=== PATIENT | male | born 1945 | race Caucasian/White ===

== ENCOUNTER → 2017-12-26 | Outpatient (CLI) | payer MEDICARE, OTHER ==
[~2017-12-26] MED LIST: ACET-1935 PO; AMLO-552 PO; ASPI81TA94 PO; CEL100 PO; CEP500 PO; CEPH-13 PO; DIA5 PO; DOC100 PO; DOXA8TAB11 PO; DOXA8TAB62 PO; DYA PO; HYDR-4309 PO; KET10 PO; LIDO700A29 TD; LOR5 PO; MELO-149 PO; OMEP-218 PO; PER PO; PIRO-91 PO; TAM4 PO; TAMS0.4C70 PO; VALA100062 PO
--- NOTE | 2017-12-26 12:43 | RADIOLOGY IMAGING REPORT ---
FACILITY: [facility] PATIENT NAME: Aron Lucas : 1945 MR: [id number] V: [id number] EXAM DATE: ORDERING PHYSICIAN: RAOUL ASHBY TECHNOLOGIST: Location: [facility] [place] Patient: Aron Lucas : 1945 Visit/Account:[id number] Date of Sevice: 12/26/2017 CHEST PA AND LAT Indication: Cough Comparison: Chest x-ray 08/30/2016 Findings: Lungs: Clear. Mediastinum/pulmonary vasculature: Heart size and pulmonary vasculature are normal. Bones/soft tissues: Normal. IMPRESSION: Clear lungs. Report Dictated By: Jackson Choudhary at 12/26/2017 12:37 PM Report E-Signed By: Jackson Choudhary at 12/26/2017 12:38 PM WSN:[email or web address]
== END ==
LOC: RAD 11:47
PROVIDERS: ATTEND Nurse Practitioner Primary Care
DX: R05 Cough (principal)
CPT/HCPCS: 71046

== ENCOUNTER → 2018-01-31 | Outpatient (CLI) | payer MEDICARE, OTHER ==
[~2018-01-31] MED LIST changes: +AMLO-99 PO; +BENA40TA52 PO; +DOXA4TAB58 PO
[2018-01-31 05:56] LABS: PLATELET COUNT, AUTOMATED 215 K/uL (150-450)
[2018-01-31 06:10] LABS: LDL CHOLESTEROL 100 mg/dl
== END ==
LOC: LAB 05:25
PROVIDERS: ATTEND Internal Medicine
DX: C61 Malignant neoplasm of prostate (principal); E78.5 Hyperlipidemia, unspecified; I10 Essential (primary) hypertension
CPT/HCPCS: 36415; 81001; 82040; 82247; 82310; 82374; 82435; 82465; 82565; 82947; 83718; 84075; 84132; 84153; 84155; 84295; 84443; 84450; 84460; 84478; 84520; 85025

== ENCOUNTER 2018-02-13 10:53 | Outpatient (RCR) | payer MEDICARE, OTHER ==
[~2018-02-13 10:53] MED LIST changes: -BENA40TA52 PO; +BENA40TA53 PO
[2018-02-13] MEDS ORDERED: TAMS0.4C25 PO (16:25)
== END 2018-03-12 12:07 | disposition home or self-care (01) ==
LOC: RAON 10:53
PROVIDERS: ATTEND Nurse Practitioner Family
DX: Z85.46 Personal history of malignant neoplasm of prostate (principal); Z92.3 Personal history of irradiation; I10 Essential (primary) hypertension; K21.9 Gastro-esophageal reflux disease without esophagitis
CPT/HCPCS: 99212

== ENCOUNTER → 2018-07-18 | Outpatient (CLI) | payer MEDICARE, OTHER ==
[~2018-07-18] MED LIST changes: +AMLO-113 PO; -AMLO-99 PO; -HYDR-4309 PO; +HYDR-653 PO; +PNEI IJ; +TAMS0.4C25 PO
== END ==
LOC: LAB 09:01
PROVIDERS: ATTEND Internal Medicine
DX: Z02.9 Encounter for administrative examinations, unspecified (principal)

== ENCOUNTER → 2018-08-09 | Outpatient (CLI) | payer MEDICARE, OTHER ==
--- NOTE | 2018-08-09 09:45 | RADIOLOGY IMAGING REPORT ---
FACILITY: [facility] - [place] PATIENT NAME: Aron Lucas : 1945 MR: [id number] V: [id number] EXAM DATE: ORDERING PHYSICIAN: JOHN BYNUM TECHNOLOGIST: Location: [facility] - [place] Patient: Aron Lucas : 1945 Visit/Account:[id number] Date of Sevice: 08/09/2018 LIVER HISTORY: elevated liver function , History of prostate cancer, hyperlipidemia COMPARISON: August 04, 2008 FINDINGS: Gallbladder: There is a moderate amount of sludge layering within the gallbladder. There suggestion of tiny shadowing calculi as well. Gallbladder wall is thickened at 4.8 mm. No pericholecystic flui d is identified. Liver: There is dilatation of the intrahepatic biliary tree. Increased echogenicity throughout the l iver can be seen with fatty infiltration other infiltrative process Common duct: Normal, dilated at 16.8 mm. There suggestion of echogenic material within the common bi le duct which represents tiny stones or sludge mm diameter. Pancreas: Partially obscured by bowel, visualized aspects unremarkable. Right kidney: There are two small right renal cysts largest measuring 1.8 cm Upper abdominal aorta and IVC: Patent. Ascites: None visualized. IMPRESSION: Dilated common bile duct and dilated intrahepatic biliary tree. There suggestion of echogenic materi al within the common bile duct which may represent stones or sludge. Gallbladder wall is thickened. Findings are concerning for cholelithiasis with acute cholecystitis and possible choledocholithiasis Increased echogenicity throughout liver which can be seen with fatty infiltration other infiltrative process. Results were called to JOHN BYNUM at 08/09/2018 9:41 AM. Report Dictated By: Day Castellanos MD at 08/09/2018 9:08 AM Report E-Signed By: Day Castellanos MD at 08/09/2018 9:41 AM WSN:[email or web address]
== END ==
LOC: US 03:30
PROVIDERS: ATTEND Internal Medicine
DX: R94.5 Abnormal results of liver function studies (principal); I10 Essential (primary) hypertension; C61 Malignant neoplasm of prostate; E78.5 Hyperlipidemia, unspecified
CPT/HCPCS: 36415; 76705; 80074; 81256; 82040; 82150; 82247; 82310; 82374; 82435; 82565; 82728; 82947; 82977; 83540; 83550; 84075; 84132; 84155; 84295; 84450; 84460; 84520; 86038

== ENCOUNTER → 2018-08-12 | Outpatient (CLI) | payer OTHER ==
[~2018-08-12] MED LIST changes: +GADOBENATE 529MG/1ML 15ML VIAL IVP ONE; +NS(*) 0.9% 50 ML BAG 50 ML ONE
[2018-08-12 16:46] LABS: PLATELET COUNT, AUTOMATED 269 K/uL (150-450)
--- NOTE | 2018-08-12 17:48 | RADIOLOGY IMAGING REPORT ---
FACILITY: [facility] PATIENT NAME: Aron Lucas : 1945 MR: [id number] V: [id number] EXAM DATE: ORDERING PHYSICIAN: JOHN BYNUM TECHNOLOGIST: Location: [facility] - [place] Patient: Aron Lucas : 1945 Visit/Account:[id number] Date of Sevice: 08/12/2018 MRI CHOLANGIOPANCREAT W/WO CON HISTORY: Elevated liver function tests, abnormal liver ultrasound TECHNIQUE: Multiplanar multisequence magnetic resonance imaging of the abdomen with and without intr avenous contrast including magnetic resonance cholangiopancreatography (MRCP). CONTRAST: 15 COMPARISON: Liver ultrasound August 09, 2018 FINDINGS: Visualized lung bases: Grossly unremarkable. Liver: Negative. Gallbladder: On the thin axial haste images there suggestion of a 6 mm calculus in the gallbladder ne ck. Bile ducts: There is dilatation of the intrahepatic biliary radicles and dilatation of the common he patic and common bile duct which measures up to 1.5 cm in diameter. At least two stones are seen in the distal common bile duct one measuring 1.3 cm in diameter one measuring 1.4 cm in diameter. There also appears to be a 7 mm stone in the proximal common bile duct. Spleen: Negative. Adrenal glands: Negative. Pancreas: There are several small cystic areas in the pancreas; one in the tail measures approximatel y 4 mm. One in the anterior body measures approximately 4 mm. Pancreatic duct does not appear dilat ed. Common bile duct is dilated at the head Kidneys: There is moderate perinephric stranding bilaterally and bilateral renal cysts Vessels/spaces/nodes: No bulky adenopathy or ascites. Visualized GI: There suggestion of a duodenal diverticulum extending from the medial aspect of the se cond portion of the duodenum Bones/soft tissues: Unremarkable. IMPRESSION: There is extensive intra and extra hepatic biliary ductal dilatation secondary to multiple calculi se en in the common bile duct as described above. There is also suggestion of a six moment or calculus in the gallbladder neck Several cysts tiny cystic areas are seen in the pancreas as detailed above. A six-month follow-up MR is recommended Moderate perinephric stranding bilaterally Suggestion of a duodenal diverticulum extending from the medial aspect second portion of the duodenum Report Dictated By: Day Castellanos MD at 08/12/2018 4:59 PM Report E-Signed By: Day Castellanos MD at 08/12/2018 5:45 PM ETHELN:[email or web address]
== END ==
LOC: MRI 05:06
PROVIDERS: ATTEND Internal Medicine
DX: Z01.818 Encounter for other preprocedural examination (principal); K83.8 Other specified diseases of biliary tract; K80.50 Calculus of bile duct without cholangitis or cholecystitis without obstruction; R74.8 Abnormal levels of other serum enzymes; E78.5 Hyperlipidemia, unspecified; R94.5 Abnormal results of liver function studies; R93.2 Abnormal findings on diagnostic imaging of liver and biliary tract
CPT/HCPCS: 36415; 74183; 82150; 83690; 85025; A9577; J7050; 82040; 82247; 82310; 82374; 82435; 82565; 82947; 84075; 84132; 84155; 84295; 84450; 84460; 84520

== ENCOUNTER 2019-02-07 13:00 | Outpatient (RCR) | payer OTHER ==
[2019-01-28 08:29] VITALS: BP 129/79
[2019-01-28 08:32] LABS: PLATELET COUNT, AUTOMATED 212 K/uL (150-450)
[~2019-02-07 13:00] MED LIST changes: -AMLO-113 PO; +AMLO-127 PO; -GADOBENATE 529MG/1ML 15ML VIAL IVP ONE; -NS(*) 0.9% 50 ML BAG 50 ML ONE
[2019-02-07 13:06] VITALS: BP 118/82
--- NOTE | 2019-02-07 22:41 | ONCOLOGY FOLLOW UP NOTE ---
EVENT DATE: February 07, 2019 CHIEF COMPLAINT Followup for prostate cancer. HISTORY OF PRESENT ILLNESS Patient is a 73-year-old male who was seen today in one-year followup for prostate cancer. He continues to do very well. He is working at [employer] and remains active. He denies any bony arthralgias. Urinary stream is good, although he does have occasional problems with dribbling. He will undergo [facility] this [facility] [place]. He had a laparoscopic cholecystectomy last August, but no other issues in the past year. ONCOLOGY HISTORY Patient was diagnosed with adenocarcinoma of the prostate, Promise 6, involving the right lateral apex. Pretreatment PSA was 4.2. He completed IMRT from 07/15/12 through 09/18/12. PSA has remained in the 0.25 range since 2016. MEDICAL HISTORY 1. Prostate cancer, 2011. 2. Hypertension. SURGICAL HISTORY Laparoscopic cholecystectomy, August 2018. FAMILY HISTORY Unremarkable. SOCIAL HISTORY Patient is . They have three daughters. He works at [employer]. He does not smoke. MEDICATIONS 1. Amlodipine 10 mg daily. 2. Aspirin 81 mg daily. 3. Benazepril 40 mg daily. 4. Doxazosin 4 mg daily. 5. Tamsulosin 0.4 mg daily. ALLERGIES RABEPRAZOLE. REVIEW OF SYSTEMS A 12-point review of systems is performed and is negative except as stated above. PHYSICAL EXAMINATION VITAL SIGNS: Weight 228 pounds. BP 118/82, P 80, R 16, temp 97.2, O2 sat 92%. GENERAL: Patient is a well-developed, well-nourished male in no acute distress. HEAD: Normocephalic, atraumatic. EYES: Sclerae anicteric. MOUTH: Moist mucous membranes. LUNGS: Clear bilaterally. CARDIOVASCULAR: Heart rate regular, 80 per minute, without murmur. EXTREMITIES: No edema. NEUROLOGIC: Nonfocal. LABORATORY CBC on 01/28/19 showed a WBC of 5.3, hemoglobin 16.3, hematocrit 48.3, platelets 212,000. CMP was within normal limits. PSA was 0.23 and has remained stable in that range and stable since 2016. IMPRESSION The patient is a 73-year-old male diagnosed with a Promise 6 adenocarcinoma of the prostate involving the right lateral apex, completed intensity modulated radiotherapy from 07/15/12 through 09/18/12. His disease has been controlled since that time with no evidence of recurrence. PLAN 1. Prostate cancer. As above, patient is doing very well. His PSA has been stable since April 2016. We mutually agreed that [facility] with yearly PSAs. He is in agreement and understands he can call us if he has any issues or concerns. 2. . Continue Flomax. He does find that to be helpful. 3. Health care maintenance. Patient will undergo a five-year followup colonoscopy this month at [facility] [place]. 4. Follow up with Dr. Singh and with the [facility] for continued care, earlier if there is a problem. ADAN
== END 2019-03-03 13:45 | disposition home or self-care (01) ==
LOC: RAON 13:00
PROVIDERS: ATTEND Nurse Practitioner Family
DX: Z85.46 Personal history of malignant neoplasm of prostate (principal)
CPT/HCPCS: 36415; 82040; 82247; 82310; 82374; 82435; 82565; 82947; 84075; 84132; 84153; 84155; 84295; 84450; 84460; 84520; 85025